=== PATIENT | female | born 1965 | race Caucasian/White ===

== ENCOUNTER 2019-07-02 22:34 | Emergency (ER) | payer OTHER ==
[~2019-07-02] VITALS: Ht 152.4 cm; Wt 71.8 kg
[2019-07-02 22:38] VITALS: BP 183/63
--- NOTE | 2019-07-02 22:45 | NUR ---
PT TAKEN TO BED 3 Addendum: 07/02/19 at 2246 by MARIE PT TAKEN TO BED 2
--- NOTE | 2019-07-02 22:45 | NUR ---
54 Y/O FEMALE PRESENTS TO THE ER WITH C/O CHEST CONGESTION X 3 WEEKS. 0/10 PAIN. PT STATES SHE WAS SEEN BY HER PRIMARY DOCTOR AND GIVEN A Z-PACK; TESSALON PEARLES, LORATIDINE. PT STATES SHE HAS HAD NO RELIEF, AND HAS MORE DIFFICULTY BREATHING WHEN LYING DOWN. WHEEZES NOTED AT BILATERAL BASES. PT HAS A NON PRODUCTIVE COUGH. NO FEVER, VOMITING, NAUSEA, DIARRHEA. R/R EQUAL, AND UNLABORED. WILL CONTINUE TO MONITOR, SIDE RAIL X 1 PMH: HTN NKDA
--- NOTE | 2019-07-02 22:48 | NUR ---
Dr. Jose examining patient.
[2019-07-02] MEDS ORDERED: methylPREDNISolone SS 125 MG/2 ML VIAL IM ONE (23:10)
[2019-07-02] MEDS ORDERED: ALBUTEROL SULFATE/IPRATROPIU 3 ML SOL IH ONE (23:10)
[2019-07-02] MEDS ORDERED: ALBUTEROL HFA MDI 90 MCG/ACTUATION 8 GM INH ONE (23:10)
[2019-07-02] MEDS ORDERED: MORPHINE SULFATE 4 MG/ML SYR IVP ONE (23:35)
[2019-07-02] MEDS ORDERED: diphenhydrAMINE 50 MG/ML VIAL IVP ONE (23:35)
--- NOTE | 2019-07-02 23:43 | NUR ---
Breathing tx administered by Respiratory therapist to the pt. Pt stated she feel better with it. Pt kept comfortably on bed by posititoning the pt on high fowlers posititon.
--- NOTE | 2019-07-02 23:56 | NUR ---
Dr Jose ordered morphine and benadryl injection and he verbally ordered to discontinue and not to administered to the pt as it was wrong entry. Pt primary RN Mark made aware.
[2019-07-03 00:02] VITALS: BP 157/75
--- NOTE | 2019-07-03 00:05 | NUR ---
Patient discharged with v/s stable. Written and verbal after care instructions given and explained. Patient alert, oriented and verbalized understanding of instructions. Ambulatory with steady gait. All questions addressed prior to discharge. ID band removed. Patient advised to follow up with PMD. Rx of albuterol given. Patient educated on indication of medication including possible reaction and side effects. Opportunity to ask questions provided and answered.Pt no complains of any chest pain, sob, or any pain in origin. Pt d/c.
== END 2019-07-03 00:05 | disposition home or self-care (01) ==
LOC: MED 22:34
DX: J40 Bronchitis, not specified as acute or chronic (principal)
CPT/HCPCS: 71045; 94664; 96372; 99283; J2930; J3535; Q0092; 93005

== ENCOUNTER 2020-10-06 16:47 | Emergency (ER) | payer OTHER ==
[~2020-10-06] VITALS: Ht 152.4 cm; Wt 72.2 kg
[2020-10-06 17:03] VITALS: BP 176/89
[2020-10-06] MEDS ORDERED: LOSA25TA32 PO (17:46)
== END 2020-10-06 17:55 | disposition home or self-care (01) ==
LOC: MED 16:47
DX: I10 Essential (primary) hypertension (principal); Z76.0 Encounter for issue of repeat prescription; Z79.899 Other long term (current) drug therapy
CPT/HCPCS: 99281

== ENCOUNTER 2021-04-20 17:08 | Emergency (ER) | payer OTHER ==
[~2021-04-20] VITALS: Ht 152.4 cm; Wt 68.9 kg
[~2021-04-20 17:08] MED LIST: ENAL-197 PO; LOSA25TA32 PO
[2021-04-20 17:14] VITALS: BP 184/105
--- NOTE | 2021-04-20 17:30 | NUR ---
PT AMB TO BED 11.
--- NOTE | 2021-04-20 17:35 | NUR ---
56 Y/O Female BIB daughter for c/o CP/MOTA and SOB x 1 day. AOX4, able to make needs known. Resp even and unlabored. Lung sounds clear upon auscultation. Abd soft and non-tender. +N, denies V/D at this time. States that she was dizzy at home with vision changes that have now since resolved. Pt stated that she did not take her B/P meds today and misses some doses as she doesn't need them everyday. Pt counseled about medication adherence at this time. Pmhx: HTN Allergies: Denies Home meds: See list in chart
--- NOTE | 2021-04-20 17:45 | NUR ---
Blood specimen taken and hadned to [facility] syrup blender
[2021-04-20 18:42] LABS: BASOPHILS # (AUTO) 0.2 K/uL (0.00-0.22); BASOPHILS % (AUTO) 2.9 % (0.0-2.0); EOSINOPHILS # (AUTO) 0.2 K/uL (0-0.4); EOSINOPHILS % (AUTO) 2.6 % (0.0-4.0); HEMATOCRIT 37.2 % (36-48); HEMOGLOBIN 12.7 g/dL (12.0-16.0); LYMPHOCYTES # (AUTO) 1.8 K/uL (2.5-16.5); LYMPHOCYTES % (AUTO) 27.9 % (20.5-51.1); MEAN CORPUSCULAR HEMOGLOBIN 30 pg (27-31); MEAN CORPUSCULAR HGB CONC 34 g/dL (33-37); MEAN CORPUSCULAR VOLUME 86.3 fL (80-94); MONOCYTES # (AUTO) 0.4 K/uL (0.8-1.0); NEUTROPHILS % (AUTO) 60.6 % (42.2-75.2); PLATELET COUNT (AUTO) 193 K/uL (140-450); RED BLOOD CELL COUNT(AUTO) 4.32 MIL/uL (4.20-5.40); RED CELL DISTRIBUTION WIDTH 13.5 % (11.6-13.7); WHITE BLOOD COUNT (AUTO) 6.6 K/uL (4.8-10.8)
[2021-04-20 18:47] LABS: ALBUMIN 3.8 g/dL (3.4-5.0); ANION GAP 12.6 (8-16); CARBON DIOXIDE 26.8 mmol/L (21-32); CREATININE 0.7 mg/dL (0.6-1.3); MAGNESIUM 1.6 mg/dL (1.8-2.4); PHOSPHORUS 3.4 mg/dL (2.5-4.9); POTASSIUM 3.4 mmol/L (3.5-5.1); TOTAL BILIRUBIN 0.3 mg/dL (0.0-1.0)
--- NOTE | 2021-04-20 19:17 | NUR ---
Pt report given to HEIDE NICOLAS. Transfer of care at this time.
--- NOTE | 2021-04-20 19:35 | NUR ---
CONSENT SIGNED FOR CT
--- NOTE | 2021-04-20 19:57 | NUR ---
PT TAKEN TO CT
--- NOTE | 2021-04-20 20:20 | NUR ---
RETURNED FROM CT
--- NOTE | 2021-04-20 23:00 | NUR ---
IV removed, catheter intact and site benign. Applied folded 4x4 gauze and tape to stop bleeding.
[2021-04-20 23:03] VITALS: BP 127/69
--- NOTE | 2021-04-20 23:03 | NUR ---
Patient discharged with v/s stable. Written and verbal after care instructions given and explained. Patient verbalized understanding. Ambulatory with steady gait. ID band removed. All questions addressed prior to discharge. Advised to follow up with PMD.
== END 2021-04-20 23:03 | disposition home or self-care (01) ==
LOC: MED 17:08
DX: I10 Essential (primary) hypertension (principal); Z79.899 Other long term (current) drug therapy
CPT/HCPCS: 36415; 71045; 71260; 80053; 83735; 84100; 84484; 85025; 93005; 99285; Q9967